=== PATIENT | male | born 1975 | race Caucasian/White ===

== ENCOUNTER 2017-04-19 15:30 | Emergency (ER) | payer OTHER, BC ==
[~2017-04-19] VITALS: Ht 172.7 cm; Wt 77.0 kg
[2017-04-19 15:36] VITALS: Ht 172.7 cm; Wt 77.0 kg
[2017-04-19] MEDS ORDERED: LIDOCAINE 1% (MDV) 20 ML INJ SC ONE (17:30)
[2017-04-19] MEDS ORDERED: ACETAMINOPHEN 325 MG TAB PO ONE (17:30)
[2017-04-19] MEDS ORDERED: TRAM50TA2 PO (18:05)
[2017-04-19] MEDS ORDERED: IBUP-1542 PO (18:05)
--- NOTE | 2017-04-19 18:09 | ERD ---
ER Documentation Chief Complaint Date/Time DATE: 04/19/17 TIME: 18:06 Chief Complaint left knee pain/swelling and ankle pain sent by pmd HPI This 42-year-old male presents with left knee pain swelling worsening over the last 4-6 weeks. He denies any history of trauma. He denies any fevers or redness. Presents referred by mid-level at his primary care office. He has had negative arterial Doppler studies, negative venous Doppler studies and x- ray which shows effusion but no fracture dislocation or acute abnormalities. Patient has had dependent swelling in his left ankle and foot as well. Patient apparently has an orthopedist referral or appointment pending..Patient has history of gout although his symptoms usually improve with his gout medication and they are not during this episode of left knee pain. ROS All systems reviewed and are negative except as per history of present illness. Medications Home Meds Active Scripts Tramadol HCl (Tramadol HCl) 50 Mg Tablet, 50 MG PO Q4 Y for PAIN, #20 TAB Prov:QUINTEN LEMUS MD 04/19/17 Ibuprofen* (Motrin*) 600 Mg Tab, 600 MG PO Q6, #20 TAB Prov:QUINTEN LEMUS MD 04/19/17 Allergies Allergies: Coded Allergies: No Known Allergy (Unverified , 04/19/17) PMhx/Soc Medical and Surgical Hx: pt denies Medical Hx, pt denies Surgical Hx Hx Alcohol Use: No Hx Substance Use: No Hx Tobacco Use: No Smoking Status: Never smoker Physical Exam Vitals Vital Signs Date Time Temp Pulse Resp B/P Pulse Ox O2 Delivery O2 Flow Rate FiO2 04/19/17 15:36 98.1 80 18 109/69 100 Physical Exam Const: []Alert, [id number] per Head: Atraumatic Eyes: Normal Conjunctiva ENT: Normal External Ears, Nose and Mouth. Neck: Full range of motion..~ No meningismus. Resp: Clear to auscultation bilaterally Cardio: Regular rate and rhythm, no murmurs Abd: Soft, non tender, non distended. Normal bowel sounds Skin: No petechiae or rashes Back: No midline or flank tenderness Ext: No cyanosis, or edemaThere is some generalized swelling or effusion of the left knee. There is some tenderness in the popliteal area. There is no calf swelling or Homans sign. There is some edema of the ankle and foot as well which appears dependent. There is no erythema, warmth, streaking. Neur: Awake and alert Psych: Normal Mood and Affect Results 24 hrs Current Medications Medications (Trade) Dose Ordered Sig/Hayden Route PRN Reason Start Time Stop Time Status Last Admin Dose Admin Acetaminophen (Tylenol Tab) 650 mg ONCE ONCE PO 04/19/17 17:30 04/19/17 17:31 DC 04/19/17 17:46 Lidocaine (Xylocaine 1% (Mdv) 20 ml) 20 ml ONCE ONCE SC 04/19/17 17:30 04/19/17 17:31 DC Procedures/MDM Patient presents with left knee swelling of uncertain etiology. Fusion was requested by PCP by history. Signs or symptoms do not suggest septic arthritis , cellulitis. Procedure note-the left knee was prepped with Betadine. Patient was counseled on the risks and benefits of arthrocentesis including but not limited to infection, foreign body, worsening pain. Patient wishes to proceed. 1 cc of lidocaine was used for local infiltration.Via sterile technique, A 18-gauge needle was used to aspirate the left knee. Only a small amount of blood was aspirated which was dark thick. I suspect he may have organized hemarthrosis. There is no evidence of satisfying effusion. Wound was dressed. Patient presents with left knee swelling of uncertain etiology. Given previous studies signs and symptoms do not suggest DVT, ischemia, and there is no evidence of cellulitis or bacterial infection. Patient was placed in a left knee immobilizer was neurovascular intact after the knee immobilizer. He was given crutches with crutch training as well. Discharged home with prescription for ibuprofen, tramadol and instructions for elevation and ice and primary care and orthopedic follow-up. He is advised to return sooner for fevers, redness, new symptoms. Disclaimer: Inadvertent spelling and grammatical errors are likely due to EHR/ dictation software use and do not reflect on the overall quality of patient care. Also, please note that the electronic time recorded on this note does not necessarily reflect the actual time of the patient encounter. Departure Diagnosis: Primary Impression: Knee pain Chronicity: acute Laterality: left Qualified Code: M25.562 - Acute pain of left knee Condition: Stable Patient Instructions: Knee Pain, Uncertain Cause, Knee Effusion Additional Instructions: Elevated at home. Apply ice as well. See orthopedist as referred. Recheck sooner for fevers, redness, new symptoms. QUINTEN LEMUS MD Apr 19, 2017 18:09
== END 2017-04-19 18:26 | disposition home or self-care (01) ==
LOC: FTE 15:30
DX: M25.562 Pain in left knee (principal)